=== PATIENT | male | born 1960 | race African-American/Black ===

== ENCOUNTER 2017-04-15 14:42 | Emergency (ER) | payer MEDICAID ==
[~2017-04-15] VITALS: Ht 172.7 cm; Wt 79.0 kg
[2017-04-15] MEDS ORDERED: KETOROLAC 60MG/2ML VIAL IM ONE (20:00)
[2017-04-15 20:19] LABS: CLARITY URINE CLEAR (CLEAR); COLOR URINE YELLOW (YELLOW); KETONES URINE NEGATIVE (NEGATIVE); LEUKOCYTE ESTERASE URINE NEGATIVE (NEGATIVE); NITRITE URINE NEGATIVE (NEGATIVE); OCCULT BLOOD URINE NEGATIVE (NEGATIVE); PROTEIN URINE NEGATIVE (NEGATIVE)
[2017-04-15 21:45] VITALS: BP 118/71
== END 2017-04-15 21:52 | disposition home or self-care (01) ==
LOC: ER 14:44
DX: N50.89 Other specified disorders of the male genital organs (principal); F17.200 Nicotine dependence, unspecified, uncomplicated
CPT/HCPCS: 76870; 81003; 93976; 96372; 99285; J1885; Z7610